=== PATIENT | male | born 1995 | race Caucasian/White ===

== ENCOUNTER → 2016-10-06 | Outpatient (CLI) | payer OTHER ==
--- NOTE | 2016-10-06 19:24 | US ---
EXAMINATION TYPE: US abdomen complete DATE OF EXAM: 10/06/2016 5:50 PM COMPARISON: NONE CLINICAL HISTORY: R94.5 Elevated Liver function test. Abdominal pain, nausea EXAM MEASUREMENTS: Liver Length: 15.5 cm Gallbladder Wall: 0.2 cm CBD: 0.4 cm Spleen: 13.6 cm Right Kidney: 10.8 x 4.5 x 5.5 cm Left Kidney: 11.1 x 4.9 x 4.7 cm Pancreas: Tail obscured by overlying bowel gas, visualized portions show no mass Liver: wnl Gallbladder: wnl Evidence for sonographic Prado's sign: No CBD: wnl Spleen: Enlarged Right Kidney: No hydronephrosis or masses seen Left Kidney: No hydronephrosis or masses seen Upper IVC: wnl Abd Aorta: wnl The liver is homogenous. The intrahepatic portion of the IVC and proximal abdominal aorta are within normal limits. There is no evidence of cholelithiasis. Common bile duct is unremarkable. The visu alized portions of the pancreas are homogenous. The spleen is enlarged. Kidneys are symmetric and f ree of hydronephrosis. No renal lesions are seen. IMPRESSION: There is mild splenomegaly. No gallstones or dilated ducts.
== END | disposition home or self-care (01) ==
LOC: RADUSWWP 15:47
PROVIDERS: ATTEND Family Medicine
DX: R16.1 Splenomegaly, not elsewhere classified (principal)
CPT/HCPCS: 76700